=== PATIENT | male | born 1940 | race Caucasian/White ===

== ENCOUNTER 2021-08-08 18:19 | Emergency (ER) | payer MEDICARE ==
[~2021-08-08] VITALS: Ht 172.7 cm; Wt 79.1 kg
[2021-08-08 19:14] VITALS: BP 124/71
[2021-08-08 20:03] LABS: ALANINE AMINOTRANSFERASE 395 U/L (12-78); ALKALINE PHOSPHATASE 55 IU/L (46-116); ANION GAP 13 (8-16); ASPARTATE AMINO TRANSFERASE 480 U/L (10-37); BILIRUBIN,TOTAL 1.4 MG/DL (0.1-1.0); BLOOD UREA NITROGEN 37 MG/DL (7-18); BUN/CREATININE RATIO 21.3 (5.4-32.0); CALCIUM 9.6 MG/DL (8.5-10.1); CHLORIDE 98 MMOL/L (99-107); CREATININE 1.74 MG/DL (0.60-1.10); GLUCOSE 158 MG/DL (70-104); POTASSIUM 4.7 MMOL/L (3.5-5.1); SODIUM 133 MMOL/L (135-145); TOTAL CARBON DIOXIDE 21.9 MMOL/L (24-32); eGFR 38 ML/MIN
[2021-08-08 20:22] LABS: BASOPHILS % (AUTO) 0.2 % (0-1); EOSINOPHILS % (AUTO) 0.1 % (0-6); HEMATOCRIT 39.7 % (42.0-52.0); HEMOGLOBIN 13.5 g/dl (14.0-17.9); LYMPHOCYTES # (AUTO) 1.1 X10'3 (1.1-4.8); LYMPHOCYTES % (AUTO) 11.2 % (21-51); MEAN CORPUSCULAR HEMOGLOBIN 32.1 PG (27.0-31.0); MEAN CORPUSCULAR HGB CONC 33.9 g/dL (33.0-36.5); MEAN CORPUSCULAR VOLUME 94.8 FL (78-98); MEAN PLATELET VOLUME 9.6 FL (7.4-10.4); MONOCYTES # (AUTO) 1.2 X10'3 (0-0.9); MONOCYTES % (AUTO) 13.1 % (2-12); NEUTROPHILS # (AUTO) 7.1 X10'3 (1.8-7.7); NEUTROPHILS % (AUTO) 75.4 % (42-75); PLATELET COUNT 164 X10'3 (140-440); RED BLOOD COUNT 4.19 X10'6 (4.70-6.10); RED CELL DISTRIBUTION WIDTH 12.8 % (11.5-14.5); WHITE BLOOD COUNT 9.4 X10'3 (4.5-11.0)
[2021-08-08 21:01] LABS: COLOR,URINE AMBER (Yellow); UA COLLECTION TYPE CLN CATCH MIDSTREAM
[2021-08-08 21:02] LABS: CLARITY,URINE CLEAR (Clear); GLUCOSE, URINE NEGATIVE (Neg); KETONES,URINE NEGATIVE (Neg); NITRITES, URINE NEGATIVE (Neg); OCCULT BLOOD,URINE TRACE-LYSED (Neg); PROTEIN,URINE TRACE mg/dl (Neg)
[2021-08-08 21:03] LABS: LEUKOCYTE ESTERASE ,URINE NEGATIVE (Neg); UROBILINOGEN,URINE 0.2 E.U/dL (0.2-1.0)
[2021-08-08 21:33] LABS: BACTERIA,URINE NONE SEEN /HPF (Neg); MUCUS STRANDS MODERATE /LPF (Neg); SQUAMOUS EPITHELIAL CELL,UR FEW /LPF (FEW); WBC,URINE 0-4 /HPF (0-4)
== END 2021-08-08 21:40 | disposition home or self-care (01) ==
LOC: ER 18:19
DX: R74.01 Elevation of levels of liver transaminase levels (principal); R14.0 Abdominal distension (gaseous); R11.2 Nausea with vomiting, unspecified; R10.31 Right lower quadrant pain; R10.32 Left lower quadrant pain; G40.909 Epilepsy, unspecified, not intractable, without status epilepticus; E78.00 Pure hypercholesterolemia, unspecified; I11.0 Hypertensive heart disease with heart failure; I50.9 Heart failure, unspecified; Z95.5 Presence of coronary angioplasty implant and graft; Z95.0 Presence of cardiac pacemaker
CPT/HCPCS: 36415; 70450; 71045; 74176; 80053; 81001; 83880; 85025; 93005; 99285

== ENCOUNTER 2021-08-11 12:36 | Inpatient (IN) | payer MEDICARE ==
[~2021-08-11] VITALS: Ht 172.7 cm; Wt 94.7 kg
[2021-08-11 13:04] LABS: HEMOGLOBIN 13.4 g/dl (14.0-17.9); WHITE BLOOD COUNT 9.7 X10'3 (4.5-11.0)
[2021-08-11 13:06] LABS: BASOPHILS % (AUTO) 0.1 % (0-1); EOSINOPHILS % (AUTO) 0.1 % (0-6); HEMATOCRIT 38.9 % (42.0-52.0); MEAN CORPUSCULAR HEMOGLOBIN 32.6 PG (27.0-31.0); MEAN CORPUSCULAR HGB CONC 34.4 g/dL (33.0-36.5); MEAN CORPUSCULAR VOLUME 94.6 FL (78-98); MEAN PLATELET VOLUME 9.5 FL (7.4-10.4); MONOCYTES # (AUTO) 1.1 X10'3 (0-0.9); MONOCYTES % (AUTO) 11.8 % (2-12); NEUTROPHILS # (AUTO) 7.6 X10'3 (1.8-7.7); PLATELET COUNT 125 X10'3 (140-440); RED BLOOD COUNT 4.11 X10'6 (4.70-6.10); RED CELL DISTRIBUTION WIDTH 13.3 % (11.5-14.5)
[2021-08-11 13:23] LABS: ALBUMIN 3.9 G/DL (3.4-5.0); ALBUMIN/GLOBULIN RATIO 1.1 (1.1-1.5); ALKALINE PHOSPHATASE 83 IU/L (46-116); ANION GAP 8 (8-16); BILIRUBIN,TOTAL 1.5 MG/DL (0.1-1.0); BLOOD UREA NITROGEN 73 MG/DL (7-18); CALCIUM 9.1 MG/DL (8.5-10.1); CHLORIDE 94 MMOL/L (99-107); CREATININE 2.28 MG/DL (0.60-1.10); GLUCOSE 123 MG/DL (70-104); SODIUM 129 MMOL/L (135-145); TOTAL CARBON DIOXIDE 26.9 MMOL/L (24-32); TOTAL PROTEIN 7.3 G/DL (6.4-8.2); eGFR 28 ML/MIN
[2021-08-11 13:43] LABS: ACETAMINOPHEN < 2.0 UG/ML (10-30)
[2021-08-11 13:44] LABS: ALANINE AMINOTRANSFERASE 1592 U/L (12-78); ASPARTATE AMINO TRANSFERASE 1140 U/L (10-37)
[2021-08-11 15:45] LABS: LIPASE 181 U/L (73-393)
[2021-08-11] MEDS ORDERED: ondansetron/PF 4mg/2ml inj IV ONE (17:45)
[2021-08-11] MEDS ORDERED: normal saline 1000ML IV soln IVB ONE (17:45)
[2021-08-11] MEDS ORDERED: morphine 4 MG/ML inj SYRINge IV PRN (17:45)
[2021-08-11] MEDS ORDERED: CefTRIAXone 2gm/D5W 50ml BAG 50 ML IV ONE (18:15)
--- NOTE | 2021-08-11 19:09 | NUR ---
raeann daughter [phone]
[2021-08-11] MEDS ORDERED: LEVE500T PO (19:11)
[2021-08-11] MEDS ORDERED: GABA300C PO (19:11)
[2021-08-11] MEDS ORDERED: CALC-1051 PO (19:11)
[2021-08-11] MEDS ORDERED: GLUC-95 PO (19:11)
[2021-08-11] MEDS ORDERED: APIX5TAB3 PO (19:11)
[2021-08-11] MEDS ORDERED: SPIR25TA5 PO (19:11)
[2021-08-11] MEDS ORDERED: UBID100C16 PO (19:11)
[2021-08-11] MEDS ORDERED: ASCO-283 PO (19:11)
[2021-08-11] MEDS ORDERED: ONDA-103 PO (19:11)
[2021-08-11] MEDS ORDERED: NITR0.4T51 SL (19:11)
[2021-08-11] MEDS ORDERED: LISI10TA27 PO (19:11)
[2021-08-11] MEDS ORDERED: SIMV-45 PO (19:11)
[2021-08-11] MEDS ORDERED: BIOT10004 PO (19:11)
[2021-08-11] MEDS ORDERED: MULT-1085 PO (19:11)
[2021-08-11] MEDS ORDERED: METH500T4 PO (19:11)
[2021-08-11] MEDS ORDERED: GARL1000 PO (19:11)
[2021-08-11] MEDS ORDERED: FURO40TA4 PO (19:11)
[2021-08-11] MEDS ORDERED: potassium CL 10mEq/100ml bag 100 ML IV PRN (22:20)
[2021-08-11] MEDS ORDERED: acetaminophen 325mg tablet PO PRN ×2 (22:20)
[2021-08-11] MEDS ORDERED: magnesium 4gm in 100ml NS 100 ML IV PRN (22:20)
[2021-08-11] MEDS ORDERED: potassium Cl 20 mEq SR tablet PO PRN ×2 (22:20)
[2021-08-11] MEDS ORDERED: mag hydrox/Alum hydrox/simeth 30ml oral suspension PO PRN (22:20)
[2021-08-11] MEDS ORDERED: magnesium 2GM in 50ml NS 50 ML IV PRN (22:20)
[2021-08-11] MEDS ORDERED: magnesium Cl slow-release 64mg tablet PO PRN (22:20)
[2021-08-11] MEDS: normal saline 1000ml 1,000 ML IV SCH (22:47)
[2021-08-11 23:11] LABS: MAGNESIUM 2.8 MG/DL (1.5-2.4); POTASSIUM 4.7 MMOL/L (3.5-5.1)
[2021-08-11] MEDS: heparin, porcine 5000 units/ml vial SQ SCH (23:21)
[2021-08-12 01:16] LABS: HEMOGLOBIN 12.1 g/dl (14.0-17.9); MEAN PLATELET VOLUME 10.1 FL (7.4-10.4); MONOCYTES # (AUTO) 1.5 X10'3 (0-0.9); WHITE BLOOD COUNT 9.1 X10'3 (4.5-11.0)
[2021-08-12 01:17] LABS: BASOPHILS % (AUTO) 0.2 % (0-1); EOSINOPHILS % (AUTO) 0.1 % (0-6); HEMATOCRIT 34.7 % (42.0-52.0); LYMPHOCYTES # (AUTO) 1.2 X10'3 (1.1-4.8); MEAN CORPUSCULAR HEMOGLOBIN 32.8 PG (27.0-31.0); MEAN CORPUSCULAR VOLUME 93.9 FL (78-98); MONOCYTES % (AUTO) 16.7 % (2-12); NEUTROPHILS # (AUTO) 6.4 X10'3 (1.8-7.7); PLATELET COUNT 113 X10'3 (140-440); RED CELL DISTRIBUTION WIDTH 13.1 % (11.5-14.5)
[2021-08-12 01:38] LABS: ALBUMIN 3.4 G/DL (3.4-5.0); ALBUMIN/GLOBULIN RATIO 1.1 (1.1-1.5); ALKALINE PHOSPHATASE 74 IU/L (46-116); ANION GAP 10 (8-16); ASPARTATE AMINO TRANSFERASE 837 U/L (10-37); BLOOD UREA NITROGEN 76 MG/DL (7-18); BUN/CREATININE RATIO 33.5 (5.4-32.0); CALCIUM 8.3 MG/DL (8.5-10.1); CHLORIDE 97 MMOL/L (99-107); CHOL/HDL RATIO 3.5 (0.00-4.99); CHOLESTEROL 81 MG/DL (0-200); CREATININE 2.27 MG/DL (0.60-1.10); GLUCOSE 106 MG/DL (70-104); HDL CHOLESTEROL 23 MG/DL (35-60); LDL CHOLESTEROL 51 MG/DL (50-100); SODIUM 132 MMOL/L (135-145); TOTAL CARBON DIOXIDE 24.7 MMOL/L (24-32); TOTAL PROTEIN 6.5 G/DL (6.4-8.2); TRIGLYCERIDES 47 MG/DL (20-135); eGFR 28 ML/MIN
[2021-08-12 02:00] VITALS: BP 106/68
--- NOTE | 2021-08-12 02:35 | NUR ---
Patient was transfer into room 3013 B in a stable condition, oriented to room, call light within, reach bed in lower position will continue to monitor and report changes
[2021-08-12 02:41] LABS: ALANINE AMINOTRANSFERASE 1265 U/L (12-78)
--- NOTE | 2021-08-12 06:39 | NUR ---
Problems reprioritized. Patient report given, questions answered & plan of care reviewed with Ros LITTLE .
--- NOTE | 2021-08-12 06:59 | NUR ---
Patient in room PCU 3013. I have received report from Nelly and had the opportunity to ask questions and assume patient care.AAox4, in no distress, call light in reach
[2021-08-12 07:01] VITALS: BP 104/63
[2021-08-12] MEDS: K and/or MAG REPLACEMENT MC SCH ×2 (08:00→20:00)
[2021-08-12] MEDS: levetiracetam 250mg tablet PO SCH ×2 (10:01→22:10)
[2021-08-12] MEDS: lisinopril 5mg tablet PO SCH (10:02)
[2021-08-12] MEDS: heparin, porcine 5000 units/ml vial SQ SCH ×2 (10:03→16:41)
[2021-08-12] MEDS: CefTRIAXone 2gm/D5W 50ml BAG 50 ML IV SCH (10:05)
[2021-08-12] MEDS: furosemide 40mg/4ml inj IV SCH ×2 (10:05→22:09)
[2021-08-12 11:00] VITALS: BP 103/60
[2021-08-12 15:00] VITALS: BP 107/53
[2021-08-12] MEDS: morphine 2 MG/ML inj. syringe IV PRN ×2 (16:12→22:10)
[2021-08-12] MEDS: carVEDilol 3.125mg tablet PO SCH (17:37)
[2021-08-12 19:00] VITALS: BP 107/55
--- NOTE | 2021-08-12 19:07 | NUR ---
Problems reprioritized. Patient report given,randall LITTLE questions answered & plan of care reviewed with .
[2021-08-12] MEDS: lactobacillus rhamnosus 10,000 MMU CELLS/CAPSULE PO SCH (22:09)
[2021-08-12] MEDS: ondansetron/PF 4mg/2ml inj IV PRN (22:31)
[2021-08-12 23:00] VITALS: BP 86/47
--- NOTE | 2021-08-13 03:00 | NUR ---
Patient refused for vital signs to be taken.
[2021-08-13 06:00] VITALS: BP 126/67
--- NOTE | 2021-08-13 06:45 | NUR ---
Problems reprioritized. Patient report given, questions answered & plan of care reviewed with ANABEL Andre.
--- NOTE | 2021-08-13 06:46 | NUR ---
Patient in room PCU 3013. I have received report from Ava LITTLE and had the opportunity to ask questions and assume patient care.
[2021-08-13] MEDS: levetiracetam 250mg tablet PO SCH ×2 (07:53→19:57)
[2021-08-13] MEDS: furosemide 40mg/4ml inj IV SCH ×2 (07:54→19:56)
[2021-08-13] MEDS: heparin, porcine 5000 units/ml vial SQ SCH ×3 (07:56→16:15)
[2021-08-13] MEDS: lactobacillus rhamnosus 10,000 MMU CELLS/CAPSULE PO SCH ×2 (07:57→19:57)
[2021-08-13] MEDS: carVEDilol 3.125mg tablet PO SCH ×2 (07:57→16:15)
[2021-08-13] MEDS: lisinopril 5mg tablet PO SCH (07:57)
[2021-08-13] MEDS: K and/or MAG REPLACEMENT MC SCH ×2 (08:00→19:40)
[2021-08-13 08:01] LABS: BASOPHILS % (AUTO) 0.2 % (0-1); HEMOGLOBIN 12.7 g/dl (14.0-17.9); MONOCYTES # (AUTO) 1.4 X10'3 (0-0.9); MONOCYTES % (AUTO) 17.2 % (2-12); NEUTROPHILS # (AUTO) 5.7 X10'3 (1.8-7.7)
[2021-08-13] MEDS: CefTRIAXone 2gm/D5W 50ml BAG 50 ML IV SCH (08:02)
[2021-08-13 08:04] LABS: EOSINOPHILS % (AUTO) 0.3 % (0-6); HEMATOCRIT 37.5 % (42.0-52.0); LYMPHOCYTES % (AUTO) 12.6 % (21-51); MEAN CORPUSCULAR HEMOGLOBIN 32.4 PG (27.0-31.0); MEAN CORPUSCULAR HGB CONC 33.9 g/dL (33.0-36.5); MEAN CORPUSCULAR VOLUME 95.5 FL (78-98); MEAN PLATELET VOLUME 10.3 FL (7.4-10.4); NEUTROPHILS % (AUTO) 69.7 % (42-75); PLATELET COUNT 115 X10'3 (140-440); RED BLOOD COUNT 3.93 X10'6 (4.70-6.10); WHITE BLOOD COUNT 8.1 X10'3 (4.5-11.0)
[2021-08-13 08:28] LABS: ALBUMIN 3.5 G/DL (3.4-5.0); ALKALINE PHOSPHATASE 87 IU/L (46-116); ANION GAP 9 (8-16); ASPARTATE AMINO TRANSFERASE 569 U/L (10-37); BILIRUBIN,TOTAL 1.1 MG/DL (0.1-1.0); BLOOD UREA NITROGEN 77 MG/DL (7-18); BUN/CREATININE RATIO 33.5 (5.4-32.0); CALCIUM 8.1 MG/DL (8.5-10.1); CHLORIDE 97 MMOL/L (99-107); GLUCOSE 94 MG/DL (70-104); POTASSIUM 4.6 MMOL/L (3.5-5.1); SODIUM 132 MMOL/L (135-145); TOTAL CARBON DIOXIDE 26.5 MMOL/L (24-32); TOTAL PROTEIN 6.9 G/DL (6.4-8.2); eGFR 27 ML/MIN
[2021-08-13 08:31] LABS: ALANINE AMINOTRANSFERASE 1153 U/L (12-78)
[2021-08-13 09:05] LABS: NUCLEATED RED BLOOD CELLS 3 /100WBC (0-0); PLATELET ESTIMATE DECREASED; TOTAL CELLS COUNTED 100
[2021-08-13 09:09] LABS: POLYCHROMASIA 1+
[2021-08-13 09:10] LABS: TARGET CELLS FEW
[2021-08-13 11:00] VITALS: BP 113/65
[2021-08-13] MEDS: HYDROcodone/acetaminophen 10/325mg tab PO PRN (12:57)
--- NOTE | 2021-08-13 13:12 | NUR ---
RE: Paracentesis. Per Bridget from [facility], Paracentesis will not be performed d/t not enough fluid
[2021-08-13 16:07] VITALS: BP 92/49
[2021-08-13 16:56] LABS: CLARITY,URINE CLEAR (Clear); COLOR,URINE YELLOW (Yellow); GLUCOSE, URINE NEGATIVE (Neg); KETONES,URINE NEGATIVE (Neg); LEUKOCYTE ESTERASE ,URINE NEGATIVE (Neg); NITRITES, URINE NEGATIVE (Neg); OCCULT BLOOD,URINE NEGATIVE (Neg); PROTEIN,URINE NEGATIVE (Neg); UROBILINOGEN,URINE 0.2 E.U/dL (0.2-1.0)
[2021-08-13 16:58] LABS: UA COLLECTION TYPE NON-SPECIFIED
[2021-08-13 17:08] LABS: TOTAL PROTEIN,URINE RANDOM 8.6 MG/DL
[2021-08-13 18:00] VITALS: BP 90/56
--- NOTE | 2021-08-13 18:07 | NUR ---
and daughter at bedside
[2021-08-13 18:11] LABS: UA EOSINOPHILS NO EOS /HPF
--- NOTE | 2021-08-13 18:56 | NUR ---
Patient report given to Dunia LITTLE, questions answered & plan of care reviewed with .
--- NOTE | 2021-08-13 19:43 | NUR ---
Patient's family would like to get a call from attending physician. Please call at [phone]. Thank you !
--- NOTE | 2021-08-13 20:14 | NUR ---
Please Doctor family would like to be updated. Please call daughter Shereen instead of at [phone] Thank you
[2021-08-13 22:00] VITALS: BP 105/66
[2021-08-13] MEDS: ondansetron/PF 4mg/2ml inj IV PRN (22:19)
[2021-08-13] MEDS: normal saline 1000ml 1,000 ML IV SCH (22:20)
[2021-08-13] MEDS: morphine 2 MG/ML inj. syringe IV PRN (22:31)
[2021-08-14] VITALS (7 sets, daily range): BP systolic 88–109; BP diastolic 54–69
[2021-08-14] MEDS: furosemide 40mg/4ml inj IV SCH ×2 (07:29→21:00)
[2021-08-14] MEDS: carVEDilol 3.125mg tablet PO SCH (07:30)
[2021-08-14] MEDS: heparin, porcine 5000 units/ml vial SQ SCH ×3 (07:30→17:31)
[2021-08-14] MEDS: levetiracetam 250mg tablet PO SCH ×2 (07:30→21:00)
[2021-08-14] MEDS: HYDROcodone/acetaminophen 10/325mg tab PO PRN (07:31)
[2021-08-14] MEDS: lactobacillus rhamnosus 10,000 MMU CELLS/CAPSULE PO SCH ×2 (07:33→21:00)
[2021-08-14] MEDS: CefTRIAXone 2gm/D5W 50ml BAG 50 ML IV SCH (07:33)
[2021-08-14] MEDS: lisinopril 5mg tablet PO SCH (07:33)
[2021-08-14] MEDS: K and/or MAG REPLACEMENT MC SCH ×2 (08:00→20:00)
[2021-08-14 09:19] LABS: BASOPHILS % (AUTO) 0.2 % (0-1); EOSINOPHILS # (AUTO) 0.1 X10'3 (0-0.9); EOSINOPHILS % (AUTO) 1.9 % (0-6); PLATELET COUNT 106 X10'3 (140-440)
[2021-08-14 09:22] LABS: HEMATOCRIT 35.9 % (42.0-52.0); HEMOGLOBIN 12.4 g/dl (14.0-17.9); LYMPHOCYTES # (AUTO) 1.1 X10'3 (1.1-4.8); MEAN CORPUSCULAR HEMOGLOBIN 32.6 PG (27.0-31.0); MEAN CORPUSCULAR HGB CONC 34.5 g/dL (33.0-36.5); MEAN CORPUSCULAR VOLUME 94.6 FL (78-98); MEAN PLATELET VOLUME 10.5 FL (7.4-10.4); MONOCYTES # (AUTO) 1.1 X10'3 (0-0.9); MONOCYTES % (AUTO) 14.9 % (2-12); NEUTROPHILS # (AUTO) 5.2 X10'3 (1.8-7.7); RED BLOOD COUNT 3.79 X10'6 (4.70-6.10); RED CELL DISTRIBUTION WIDTH 13.1 % (11.5-14.5); WHITE BLOOD COUNT 7.6 X10'3 (4.5-11.0)
[2021-08-14 09:35] LABS: ALANINE AMINOTRANSFERASE 794 U/L (12-78); ALBUMIN 3.2 G/DL (3.4-5.0); ALKALINE PHOSPHATASE 76 IU/L (46-116); ANION GAP 9 (8-16); ASPARTATE AMINO TRANSFERASE 302 U/L (10-37); BILIRUBIN,TOTAL 0.9 MG/DL (0.1-1.0); BLOOD UREA NITROGEN 74 MG/DL (7-18); BUN/CREATININE RATIO 36.1 (5.4-32.0); CALCIUM 7.7 MG/DL (8.5-10.1); CHLORIDE 97 MMOL/L (99-107); CREATININE 2.05 MG/DL (0.60-1.10); GLUCOSE 90 MG/DL (70-104); POTASSIUM 4.6 MMOL/L (3.5-5.1); SODIUM 133 MMOL/L (135-145); TOTAL CARBON DIOXIDE 26.9 MMOL/L (24-32); TOTAL PROTEIN 6.4 G/DL (6.4-8.2); eGFR 31 ML/MIN
[2021-08-14 09:52] LABS: HEPATITIS C ANTIBODY <0.1 s/co ratio (0.0-0.9)
--- NOTE | 2021-08-14 10:04 | NUR ---
Patient in room PCU 3013. I have received report from Dunia LITTLE and had the opportunity to ask questions and assume patient care.
[2021-08-14 10:06] LABS: PLATELET ESTIMATE DECREASED; POIKILOCYTOSIS FEW; POLYCHROMASIA FEW
[2021-08-14 10:07] LABS: TARGET CELLS FEW
[2021-08-14] MEDS: DOBUTamine-DoBUTrex 500mg/D5W 250 ML IV SCH (13:29)
--- NOTE | 2021-08-14 19:02 | NUR ---
Problems reprioritized. Patient report given Giulia RN, questions answered & plan of care reviewed with .
[2021-08-15] VITALS (8 sets, daily range): BP systolic 90–130; BP diastolic 54–63
[2021-08-15] MEDS: heparin, porcine 5000 units/ml vial SQ SCH ×3 (00:08→15:21)
[2021-08-15] MEDS: HYDROcodone/acetaminophen 10/325mg tab PO PRN ×2 (02:01→14:44)
--- NOTE | 2021-08-15 06:42 | NUR ---
Patient in room PCU 3013. I have received report from Dunia LITTLE and had the opportunity to ask questions and assume patient care.
[2021-08-15] MEDS: K and/or MAG REPLACEMENT MC SCH ×2 (08:00→20:00)
[2021-08-15 08:07] LABS: BASOPHILS % (AUTO) 0.2 % (0-1); EOSINOPHILS # (AUTO) 0.1 X10'3 (0-0.9); EOSINOPHILS % (AUTO) 1.5 % (0-6); HEMATOCRIT 37.2 % (42.0-52.0); HEMOGLOBIN 12.6 g/dl (14.0-17.9); LYMPHOCYTES % (AUTO) 16.7 % (21-51); MEAN CORPUSCULAR HEMOGLOBIN 32.3 PG (27.0-31.0); MEAN CORPUSCULAR HGB CONC 33.9 g/dL (33.0-36.5); MEAN CORPUSCULAR VOLUME 95.3 FL (78-98); MEAN PLATELET VOLUME 9.8 FL (7.4-10.4); MONOCYTES # (AUTO) 0.8 X10'3 (0-0.9); MONOCYTES % (AUTO) 13.9 % (2-12); NEUTROPHILS # (AUTO) 4.1 X10'3 (1.8-7.7); NEUTROPHILS % (AUTO) 67.7 % (42-75); PLATELET COUNT 110 X10'3 (140-440); RED BLOOD COUNT 3.91 X10'6 (4.70-6.10); RED CELL DISTRIBUTION WIDTH 13.4 % (11.5-14.5)
[2021-08-15] MEDS: furosemide 40mg/4ml inj IV SCH ×2 (08:43→20:31)
[2021-08-15] MEDS: lactobacillus rhamnosus 10,000 MMU CELLS/CAPSULE PO SCH ×2 (08:43→20:32)
[2021-08-15] MEDS: levetiracetam 250mg tablet PO SCH ×2 (08:44→20:32)
[2021-08-15] MEDS: CefTRIAXone 2gm/D5W 50ml BAG 50 ML IV SCH (08:44)
--- NOTE | 2021-08-15 09:25 | NUR ---
Dr Raymond paged regarding critical lab [phone] MESSAGE: RE: Dina Wright [id number]. Troponin 104
[2021-08-15 09:56] LABS: ALANINE AMINOTRANSFERASE 686 U/L (12-78); ALBUMIN 3.5 G/DL (3.4-5.0); ALKALINE PHOSPHATASE 78 IU/L (46-116); ANION GAP 8 (8-16); ASPARTATE AMINO TRANSFERASE 210 U/L (10-37); BLOOD UREA NITROGEN 63 MG/DL (7-18); BUN/CREATININE RATIO 31.8 (5.4-32.0); CALCIUM 7.9 MG/DL (8.5-10.1); CHLORIDE 97 MMOL/L (99-107); CREATININE 1.98 MG/DL (0.60-1.10); GLUCOSE 138 MG/DL (70-104); POTASSIUM 4.7 MMOL/L (3.5-5.1); SODIUM 132 MMOL/L (135-145); TOTAL CARBON DIOXIDE 27.2 MMOL/L (24-32); eGFR 33 ML/MIN
--- NOTE | 2021-08-15 18:41 | NUR ---
Problems reprioritized. Patient report given to Nelly LITTLE, questions answered & plan of care reviewed .
[2021-08-15] MEDS: normal saline 1000ml 1,000 ML IV SCH (22:58)
[2021-08-16] MEDS: heparin, porcine 5000 units/ml vial SQ SCH ×3 (00:17→16:07)
[2021-08-16] MEDS: DOBUTamine-DoBUTrex 500mg/D5W 250 ML IV SCH ×2 (00:18→03:51)
[2021-08-16 06:00] VITALS: BP 110/63
--- NOTE | 2021-08-16 06:30 | NUR ---
Patient in room PCU 3013. I have received report from Nelly LITTLE and had the opportunity to ask questions and assume patient care.
[2021-08-16 06:39] LABS: BASOPHILS % (AUTO) 0.3 % (0-1); EOSINOPHILS # (AUTO) 0.1 X10'3 (0-0.9); EOSINOPHILS % (AUTO) 0.8 % (0-6); HEMATOCRIT 37.4 % (42.0-52.0); HEMOGLOBIN 12.5 g/dl (14.0-17.9); LYMPHOCYTES % (AUTO) 14.9 % (21-51); MEAN CORPUSCULAR HEMOGLOBIN 31.8 PG (27.0-31.0); MEAN CORPUSCULAR HGB CONC 33.6 g/dL (33.0-36.5); MEAN CORPUSCULAR VOLUME 94.6 FL (78-98); MEAN PLATELET VOLUME 9.1 FL (7.4-10.4); MONOCYTES % (AUTO) 14.8 % (2-12); NEUTROPHILS # (AUTO) 4.6 X10'3 (1.8-7.7); NEUTROPHILS % (AUTO) 69.2 % (42-75); PLATELET COUNT 120 X10'3 (140-440); RED BLOOD COUNT 3.95 X10'6 (4.70-6.10); RED CELL DISTRIBUTION WIDTH 13.9 % (11.5-14.5); WHITE BLOOD COUNT 6.6 X10'3 (4.5-11.0)
[2021-08-16 06:58] LABS: ALANINE AMINOTRANSFERASE 516 U/L (12-78); ALBUMIN 3.5 G/DL (3.4-5.0); ALKALINE PHOSPHATASE 73 IU/L (46-116); ANION GAP 11 (8-16); ASPARTATE AMINO TRANSFERASE 142 U/L (10-37); BLOOD UREA NITROGEN 48 MG/DL (7-18); BUN/CREATININE RATIO 31.2 (5.4-32.0); CHLORIDE 96 MMOL/L (99-107); CREATININE 1.54 MG/DL (0.60-1.10); GLUCOSE 116 MG/DL (70-104); POTASSIUM 4.5 MMOL/L (3.5-5.1); SODIUM 130 MMOL/L (135-145); TOTAL CARBON DIOXIDE 23.3 MMOL/L (24-32); TOTAL PROTEIN 7.1 G/DL (6.4-8.2); eGFR 43 ML/MIN
[2021-08-16] MEDS: ondansetron/PF 4mg/2ml inj IV PRN ×2 (07:02→16:07)
[2021-08-16] MEDS: furosemide 40mg/4ml inj IV SCH ×2 (07:57→20:05)
[2021-08-16] MEDS: levetiracetam 250mg tablet PO SCH ×2 (07:58→20:05)
[2021-08-16] MEDS: lactobacillus rhamnosus 10,000 MMU CELLS/CAPSULE PO SCH ×2 (07:58→20:05)
[2021-08-16] MEDS: CefTRIAXone 2gm/D5W 50ml BAG 50 ML IV SCH (07:59)
[2021-08-16] MEDS: K and/or MAG REPLACEMENT MC SCH ×2 (08:00→20:00)
[2021-08-16] MEDS: proCHLORperazine 10 MG/2 ml inj IV PRN (10:23)
[2021-08-16 11:00] VITALS: BP 126/77
[2021-08-16] MEDS: morphine 2 MG/ML inj. syringe IV PRN ×3 (11:09→20:05)
--- NOTE | 2021-08-16 12:00 | NUR ---
Initial: Pt admitted w/ increasing abd pain, dx of CHF exacerbation per EMR. Pt still having some abd discomfort and dry heaving per MD note, though pt able to eat moderately well on Heart Healthy diet w/ 50-75% intake of meals which meets approximately 84% of est energy needs and 90% of est protein needs. LBM 08/15. No nutrition intervention implemented at this time, will continue to monitor. Recs: 1. Continue Heart Healthy diet as tolerated per MD 2. Bowel care per rx 3. Weekly wts Addendum: 08/16/21 at [address] Amended: Links added.
[2021-08-16 15:00] VITALS: BP 120/60
--- NOTE | 2021-08-16 17:53 | NUR ---
[place] documentation: I have reviewed and agree with all interventions, assessments performed and documented by Jazmín LITTLE. [place] Medication Administration: For this medication-pass time frame, all medication were reviewed, dispensed, administered and documented per hospital policy by Jazmín LITTLE
--- NOTE | 2021-08-16 18:26 | NUR ---
Problems reprioritized. Patient report given, questions answered & plan of care reviewed with Andreina LITTLE. Patient resting in no acute distress
--- NOTE | 2021-08-16 18:39 | NUR ---
Patient in room PCU 3013. I have received report from Shayla LITTLE and had the opportunity to ask questions and assume patient care.
[2021-08-16] MEDS: HYDROcodone/acetaminophen 10/325mg tab PO PRN (22:06)
[2021-08-16] MEDS: diatr meglu/diatrizoate 30ml oral sol.-(3 dose) bottle PO SCH (22:06)
[2021-08-16 23:18] VITALS: BP 86/47
[2021-08-17] MEDS: heparin, porcine 5000 units/ml vial SQ SCH ×4 (00:26→23:29)
[2021-08-17] MEDS: morphine 2 MG/ML inj. syringe IV PRN ×2 (01:24→10:55)
[2021-08-17 02:00] VITALS: BP 102/53
[2021-08-17] MEDS: HYDROcodone/acetaminophen 10/325mg tab PO PRN ×2 (04:09→21:13)
--- NOTE | 2021-08-17 06:06 | NUR ---
Problems reprioritized. Patient report given, questions answered & plan of care reviewed with Shayla LITTLE.
--- NOTE | 2021-08-17 06:37 | NUR ---
Patient in room PCU 3013. I have received report from Belgica LITTLE and had the opportunity to ask questions and assume patient care. Patient is resting in bed in no acute distress.
[2021-08-17 07:00] VITALS: BP 111/72
[2021-08-17] MEDS: lactobacillus rhamnosus 10,000 MMU CELLS/CAPSULE PO SCH ×2 (07:20→19:46)
[2021-08-17] MEDS: levetiracetam 250mg tablet PO SCH ×2 (07:22→19:46)
[2021-08-17] MEDS: ondansetron/PF 4mg/2ml inj IV PRN (07:22)
[2021-08-17] MEDS: furosemide 40mg/4ml inj IV SCH ×2 (07:22→19:45)
[2021-08-17] MEDS: diatr meglu/diatrizoate 30ml oral sol.-(3 dose) bottle PO SCH ×2 (07:22→11:06)
[2021-08-17] MEDS: K and/or MAG REPLACEMENT MC SCH ×2 (08:00→20:00)
[2021-08-17 10:57] LABS: ALANINE AMINOTRANSFERASE 435 U/L (12-78); ALBUMIN 3.8 G/DL (3.4-5.0); ALBUMIN/GLOBULIN RATIO 1.1 (1.1-1.5); ALKALINE PHOSPHATASE 70 IU/L (46-116); ANION GAP 10 (8-16); ASPARTATE AMINO TRANSFERASE 110 U/L (10-37); BILIRUBIN,TOTAL 1.7 MG/DL (0.1-1.0); BLOOD UREA NITROGEN 46 MG/DL (7-18); BUN/CREATININE RATIO 23.5 (5.4-32.0); CALCIUM 7.8 MG/DL (8.5-10.1); CHLORIDE 98 MMOL/L (99-107); CREATININE 1.96 MG/DL (0.60-1.10); GLUCOSE 133 MG/DL (70-104); MAGNESIUM 2.9 MG/DL (1.5-2.4); PHOSPHORUS 3.2 MG/DL (2.3-4.5); POTASSIUM 4.7 MMOL/L (3.5-5.1); SODIUM 133 MMOL/L (135-145); TOTAL CARBON DIOXIDE 25.1 MMOL/L (24-32); TOTAL PROTEIN 7.4 G/DL (6.4-8.2); eGFR 33 ML/MIN
[2021-08-17 11:00] VITALS: BP 110/57
[2021-08-17] MEDS ORDERED: DOBUTamine-DoBUTrex 500mg/D5W 250 ML IV SCH (11:30)
--- NOTE | 2021-08-17 12:34 | NUR ---
Page Sent promotional table spacer PAGER ID: [phone] MESSAGE: [id number] Martinez. CT report is available. Patient c/o 06/27 pain in abdomen still more prevalent on right family is concerned for appendicitis. Linnea [id number]
[2021-08-17] MEDS ORDERED: HYDROmorphone inj. 0.5 MG/0.5 ML DISP.SYRIN IV ONE (12:50)
--- NOTE | 2021-08-17 14:21 | NUR ---
Dr. Raymond gave me telephone orders to DC morphine and to order a lactic acid lab, and to change pain med to Dilaudid 0.5 mg IV Q4H for severe pain.
[2021-08-17 15:00] VITALS: BP 112/76
--- NOTE | 2021-08-17 16:54 | NUR ---
Student Medication Administration: For this medication-pass time frame, all medication were reviewed, dispensed, administered and documented per hospital policy by Will, nursing specialist.
--- NOTE | 2021-08-17 16:54 | NUR ---
Student documentation: I have reviewed and agree with all interventions, assessments performed and documented by Will, certified nursing assistant instructor.
[2021-08-17 18:00] VITALS: BP 125/78
--- NOTE | 2021-08-17 18:02 | NUR ---
Page Sent promotional table spacer PAGER ID: [phone] MESSAGE: [id number] Juan. Patient first lactic came back at 3.0 and the 2 hour lactic is 3.4. Linnea [id number]
--- NOTE | 2021-08-17 18:33 | NUR ---
Problems reprioritized. Patient report given, questions answered & plan of care reviewed with Belgica LITTLE. patient resting in no acute distress.
--- NOTE | 2021-08-17 18:37 | NUR ---
Patient in room PCU 3013. I have received report from Shayla LITTLE and had the opportunity to ask questions and assume patient care.
[2021-08-17] MEDS: HYDROmorphone inj. 0.5 MG/0.5 ML DISP.SYRIN IV PRN ×2 (19:42→23:44)
[2021-08-17] MEDS: ondansetron/PF 4mg/2ml inj IV SCH (19:46)
[2021-08-18] VITALS (7 sets, daily range): BP systolic 105–127; BP diastolic 51–66
[2021-08-18] MEDS: ondansetron/PF 4mg/2ml inj IV SCH ×4 (02:14→19:43)
[2021-08-18] MEDS: HYDROmorphone inj. 0.5 MG/0.5 ML DISP.SYRIN IV PRN ×2 (03:46→19:42)
--- NOTE | 2021-08-18 06:33 | NUR ---
Problems reprioritized. Patient report given, questions answered & plan of care reviewed with Jes LITTLE.
--- NOTE | 2021-08-18 07:03 | NUR ---
Patient in room PCU 3013. I have received report from Belgica and had the opportunity to ask questions and assume patient care.
[2021-08-18 07:14] LABS: ALANINE AMINOTRANSFERASE 440 U/L (12-78); ALBUMIN 3.8 G/DL (3.4-5.0); ALBUMIN/GLOBULIN RATIO 1.1 (1.1-1.5); ALKALINE PHOSPHATASE 66 IU/L (46-116); ANION GAP 14 (8-16); ASPARTATE AMINO TRANSFERASE 227 U/L (10-37); BILIRUBIN,TOTAL 2.3 MG/DL (0.1-1.0); BLOOD UREA NITROGEN 59 MG/DL (7-18); BUN/CREATININE RATIO 26.8 (5.4-32.0); CALCIUM 8.4 MG/DL (8.5-10.1); CHLORIDE 94 MMOL/L (99-107); GLUCOSE 119 MG/DL (70-104); MAGNESIUM 3.1 MG/DL (1.5-2.4); POTASSIUM 5.6 MMOL/L (3.5-5.1); SODIUM 131 MMOL/L (135-145); TOTAL CARBON DIOXIDE 22.7 MMOL/L (24-32); TOTAL PROTEIN 7.4 G/DL (6.4-8.2); eGFR 29 ML/MIN
[2021-08-18] MEDS: lactobacillus rhamnosus 10,000 MMU CELLS/CAPSULE PO SCH ×2 (07:48→19:44)
[2021-08-18] MEDS: furosemide 40mg/4ml inj IV SCH ×2 (07:49→20:00)
[2021-08-18] MEDS: levetiracetam 250mg tablet PO SCH ×2 (07:49→21:09)
[2021-08-18] MEDS: heparin, porcine 5000 units/ml vial SQ SCH ×2 (07:49→15:12)
[2021-08-18] MEDS: K and/or MAG REPLACEMENT MC SCH ×2 (08:00→20:00)
[2021-08-18] MEDS: SODIUM ZIRCONIUM CYCLOSILICATE 10 GM POWD.PACK PO SCH ×2 (13:04→21:07)
--- NOTE | 2021-08-18 18:47 | NUR ---
Problems reprioritized. Patient report given, questions answered & plan of care reviewed with Nelly Basurto [].
[2021-08-19] MEDS: heparin, porcine 5000 units/ml vial SQ SCH ×3 (00:11→15:31)
[2021-08-19 02:00] VITALS: BP 109/68
[2021-08-19] MEDS: ondansetron/PF 4mg/2ml inj IV SCH ×4 (02:56→20:46)
[2021-08-19] MEDS: HYDROcodone/acetaminophen 10/325mg tab PO PRN ×2 (04:56→13:13)
[2021-08-19 06:00] VITALS: BP 110/62
[2021-08-19 07:48] LABS: ALANINE AMINOTRANSFERASE 787 U/L (12-78); ALKALINE PHOSPHATASE 95 IU/L (46-116); ANION GAP 15 (8-16); ASPARTATE AMINO TRANSFERASE 766 U/L (10-37); BLOOD UREA NITROGEN 74 MG/DL (7-18); CALCIUM 8.7 MG/DL (8.5-10.1); CHLORIDE 92 MMOL/L (99-107); CREATININE 2.85 MG/DL (0.60-1.10); GLUCOSE 93 MG/DL (70-104); MAGNESIUM 3.3 MG/DL (1.5-2.4); POTASSIUM 5.5 MMOL/L (3.5-5.1); SODIUM 130 MMOL/L (135-145); TOTAL CARBON DIOXIDE 23.5 MMOL/L (24-32); eGFR 21 ML/MIN
[2021-08-19 07:49] LABS: ALBUMIN/GLOBULIN RATIO 1.1 (1.1-1.5); PHOSPHORUS 4.6 MG/DL (2.3-4.5); TOTAL PROTEIN 7.6 G/DL (6.4-8.2)
[2021-08-19] MEDS: K and/or MAG REPLACEMENT MC SCH ×2 (08:00→20:00)
[2021-08-19] MEDS: furosemide 40mg/4ml inj IV SCH ×2 (08:39→20:48)
[2021-08-19] MEDS: levetiracetam 250mg tablet PO SCH ×2 (08:42→20:45)
[2021-08-19] MEDS: lactobacillus rhamnosus 10,000 MMU CELLS/CAPSULE PO SCH ×2 (08:42→20:47)
[2021-08-19] MEDS: HYDROmorphone inj. 0.5 MG/0.5 ML DISP.SYRIN IV PRN ×2 (08:46→15:32)
[2021-08-19] MEDS: SODIUM ZIRCONIUM CYCLOSILICATE 10 GM POWD.PACK PO SCH ×3 (09:38→20:45)
[2021-08-19 11:00] VITALS: BP 112/64
[2021-08-19] MEDS: metoprolol succinate 25mg (24-HOUR) SR. Tablet PO SCH (13:10)
[2021-08-19 18:00] VITALS: BP 91/58
[2021-08-19 18:50] VITALS: BP 91/55
[2021-08-19] MEDS: simethicone 80mg chew tab PO SCH (21:00)
[2021-08-19 22:00] VITALS: BP 91/47
[2021-08-20] MEDS: heparin, porcine 5000 units/ml vial SQ SCH ×3 (01:58→15:37)
[2021-08-20 02:00] VITALS: BP 99/59
[2021-08-20] MEDS: ondansetron/PF 4mg/2ml inj IV SCH ×4 (02:02→21:09)
[2021-08-20 06:00] VITALS: BP 98/62
[2021-08-20 07:41] LABS: ALANINE AMINOTRANSFERASE 943 U/L (12-78); ALBUMIN 3.8 G/DL (3.4-5.0); ALBUMIN/GLOBULIN RATIO 1.1 (1.1-1.5); ALKALINE PHOSPHATASE 101 IU/L (46-116); ANION GAP 12 (8-16); ASPARTATE AMINO TRANSFERASE 851 U/L (10-37); BILIRUBIN,TOTAL 3.7 MG/DL (0.1-1.0); BLOOD UREA NITROGEN 95 MG/DL (7-18); BUN/CREATININE RATIO 25.9 (5.4-32.0); CALCIUM 8.4 MG/DL (8.5-10.1); CHLORIDE 93 MMOL/L (99-107); CREATININE 3.67 MG/DL (0.60-1.10); GLUCOSE 116 MG/DL (70-104); MAGNESIUM 3.7 MG/DL (1.5-2.4); PHOSPHORUS 5.7 MG/DL (2.3-4.5); POTASSIUM 5.1 MMOL/L (3.5-5.1); SODIUM 129 MMOL/L (135-145); TOTAL CARBON DIOXIDE 23.8 MMOL/L (24-32); TOTAL PROTEIN 7.2 G/DL (6.4-8.2); eGFR 16 ML/MIN
[2021-08-20] MEDS: K and/or MAG REPLACEMENT MC SCH ×2 (08:00→20:00)
[2021-08-20] MEDS: furosemide 40mg/4ml inj IV SCH ×2 (08:13→21:09)
[2021-08-20] MEDS: lactobacillus rhamnosus 10,000 MMU CELLS/CAPSULE PO SCH ×2 (08:13→21:08)
[2021-08-20] MEDS: levetiracetam 250mg tablet PO SCH ×2 (08:13→21:08)
[2021-08-20] MEDS: metoprolol succinate 25mg (24-HOUR) SR. Tablet PO SCH (08:13)
[2021-08-20] MEDS: HYDROmorphone inj. 0.5 MG/0.5 ML DISP.SYRIN IV PRN (08:14)
[2021-08-20] MEDS: SODIUM ZIRCONIUM CYCLOSILICATE 10 GM POWD.PACK PO SCH ×3 (08:18→21:08)
[2021-08-20] MEDS: simethicone 80mg chew tab PO SCH ×3 (08:19→21:08)
[2021-08-20 11:00] VITALS: BP 97/62
[2021-08-20] MEDS ORDERED: SINCALIDE IV PRN ×2 (15:00→15:05)
[2021-08-20] MEDS ORDERED: NORMAL SALINE IV PRN ×2 (15:00→15:05)
[2021-08-20 18:00] VITALS: BP 105/64
--- NOTE | 2021-08-20 18:19 | NUR ---
Patient in room PCU 3013. I have received report from Jamaal LITTLE and had the opportunity to ask questions and assume patient care.
--- NOTE | 2021-08-20 18:20 | NUR ---
Patient in room PCU 3013. I have received report from ANABEL Hinton and had the opportunity to ask questions and assume patient care.
[2021-08-20] MEDS: HYDROcodone/acetaminophen 10/325mg tab PO PRN (19:04)
[2021-08-20 22:00] VITALS: BP 96/64
[2021-08-21] MEDS: ondansetron/PF 4mg/2ml inj IV SCH ×4 (01:29→19:29)
[2021-08-21 02:00] VITALS: BP 104/63
[2021-08-21 06:00] VITALS: BP 106/68
--- NOTE | 2021-08-21 06:12 | NUR ---
Problems reprioritized. Patient report given, questions answered & plan of care reviewed with Katy LITTLE.
--- NOTE | 2021-08-21 06:16 | NUR ---
Problems reprioritized. Patient report given, questions answered & plan of care reviewed with ANABEL Burns.
--- NOTE | 2021-08-21 06:19 | NUR ---
Student documentation: I have reviewed and agree with all interventions, assessments performed and documented by Jaimee Garcia. Student Medication Administration: For this medication-pass time frame, all medication were reviewed, dispensed, administered and documented per hospital policy by Jaimee Garcia.
--- NOTE | 2021-08-21 06:45 | NUR ---
Patient in room PCU 3013. I have received report from thai saravia and had the opportunity to ask questions and assume patient care.
[2021-08-21] MEDS: HYDROcodone/acetaminophen 10/325mg tab PO PRN (06:59)
[2021-08-21] MEDS: metoprolol succinate 25mg (24-HOUR) SR. Tablet PO SCH (07:03)
[2021-08-21] MEDS: simethicone 80mg chew tab PO SCH ×3 (07:03→20:43)
[2021-08-21] MEDS: levetiracetam 250mg tablet PO SCH ×2 (07:03→20:43)
[2021-08-21] MEDS: furosemide 40mg/4ml inj IV SCH (07:04)
[2021-08-21] MEDS: lactobacillus rhamnosus 10,000 MMU CELLS/CAPSULE PO SCH ×2 (07:04→20:43)
[2021-08-21] MEDS: SODIUM ZIRCONIUM CYCLOSILICATE 10 GM POWD.PACK PO SCH ×3 (07:04→20:43)
[2021-08-21] MEDS: heparin, porcine 5000 units/ml vial SQ SCH ×4 (07:05→23:59)
[2021-08-21] MEDS: K and/or MAG REPLACEMENT MC SCH ×2 (08:00→20:00)
[2021-08-21 11:00] VITALS: BP 91/56
[2021-08-21 11:50] LABS: BASOPHILS % (AUTO) 0.2 % (0-1); EOSINOPHILS % (AUTO) 0 % (0-6); HEMATOCRIT 41.5 % (42.0-52.0); HEMOGLOBIN 13.8 g/dl (14.0-17.9); LYMPHOCYTES # (AUTO) 0.8 X10'3 (1.1-4.8); LYMPHOCYTES % (AUTO) 7.2 % (21-51); MEAN CORPUSCULAR HEMOGLOBIN 31.2 PG (27.0-31.0); MEAN CORPUSCULAR HGB CONC 33.1 g/dL (33.0-36.5); MEAN PLATELET VOLUME 9.7 FL (7.4-10.4); MONOCYTES # (AUTO) 1.2 X10'3 (0-0.9); MONOCYTES % (AUTO) 10.8 % (2-12); NEUTROPHILS # (AUTO) 8.9 X10'3 (1.8-7.7); NEUTROPHILS % (AUTO) 81.8 % (42-75); PLATELET COUNT 175 X10'3 (140-440); RED BLOOD COUNT 4.42 X10'6 (4.70-6.10); RED CELL DISTRIBUTION WIDTH 14.4 % (11.5-14.5); WHITE BLOOD COUNT 10.9 X10'3 (4.5-11.0)
[2021-08-21 12:02] LABS: ALANINE AMINOTRANSFERASE 923 U/L (12-78); ALBUMIN 3.8 G/DL (3.4-5.0); ALKALINE PHOSPHATASE 99 IU/L (46-116); ANION GAP 13 (8-16); BILIRUBIN,TOTAL 4.3 MG/DL (0.1-1.0); BLOOD UREA NITROGEN 109 MG/DL (7-18); BUN/CREATININE RATIO 30.1 (5.4-32.0); CALCIUM 8.1 MG/DL (8.5-10.1); CHLORIDE 92 MMOL/L (99-107); CREATININE 3.62 MG/DL (0.60-1.10); GLUCOSE 106 MG/DL (70-104); MAGNESIUM 3.8 MG/DL (1.5-2.4); SODIUM 130 MMOL/L (135-145); TOTAL CARBON DIOXIDE 24.8 MMOL/L (24-32); eGFR 16 ML/MIN
[2021-08-21 12:06] LABS: ALBUMIN/GLOBULIN RATIO 1.1 (1.1-1.5); ASPARTATE AMINO TRANSFERASE 686 U/L (10-37); PHOSPHORUS 5.4 MG/DL (2.3-4.5); POTASSIUM 5.3 MMOL/L (3.5-5.1); TOTAL PROTEIN 7.4 G/DL (6.4-8.2)
[2021-08-21 18:00] VITALS: BP 101/61
--- NOTE | 2021-08-21 18:48 | NUR ---
Problems reprioritized. Patient report given, questions answered & plan of care reviewed with hellen saravia.
--- NOTE | 2021-08-21 19:00 | NUR ---
Patient in room PCU 3013. I have received report from ANABEL Burns and had the opportunity to ask questions and assume patient care.
[2021-08-21] MEDS: HYDROmorphone inj. 0.5 MG/0.5 ML DISP.SYRIN IV PRN (19:20)
--- NOTE | 2021-08-22 00:02 | NUR ---
Patient refused to have his 2200 BP taken
[2021-08-22] MEDS: heparin, porcine 5000 units/ml vial SQ SCH ×3 (00:43→16:00)
[2021-08-22] MEDS: ondansetron/PF 4mg/2ml inj IV SCH ×4 (01:34→21:06)
[2021-08-22] MEDS: HYDROcodone/acetaminophen 10/325mg tab PO PRN (01:42)
[2021-08-22 02:00] VITALS: BP 105/57
--- NOTE | 2021-08-22 06:41 | NUR ---
I agree with Meron RN assessments, documentations, and report given to ANABEL Schwartz
--- NOTE | 2021-08-22 06:48 | NUR ---
Problems reprioritized. Patient report given, questions answered & plan of care reviewed with Lana LITTLE.
[2021-08-22 07:21] LABS: BASOPHILS % (AUTO) 0.1 % (0-1); EOSINOPHILS % (AUTO) 0.1 % (0-6); HEMATOCRIT 39.3 % (42.0-52.0); HEMOGLOBIN 13.1 g/dl (14.0-17.9); LYMPHOCYTES % (AUTO) 11.1 % (21-51); MEAN CORPUSCULAR HEMOGLOBIN 31.4 PG (27.0-31.0); MEAN CORPUSCULAR HGB CONC 33.4 g/dL (33.0-36.5); MEAN CORPUSCULAR VOLUME 93.8 FL (78-98); MONOCYTES # (AUTO) 1.4 X10'3 (0-0.9); MONOCYTES % (AUTO) 15.8 % (2-12); NEUTROPHILS # (AUTO) 6.5 X10'3 (1.8-7.7); NEUTROPHILS % (AUTO) 72.9 % (42-75); PLATELET COUNT 158 X10'3 (140-440); RED BLOOD COUNT 4.19 X10'6 (4.70-6.10); RED CELL DISTRIBUTION WIDTH 14.6 % (11.5-14.5)
[2021-08-22 07:27] VITALS: BP 91/64
[2021-08-22 07:41] LABS: ALANINE AMINOTRANSFERASE 933 U/L (12-78); ALBUMIN 3.6 G/DL (3.4-5.0); ALBUMIN/GLOBULIN RATIO 1.1 (1.1-1.5); ALKALINE PHOSPHATASE 97 IU/L (46-116); ANION GAP 10 (8-16); ASPARTATE AMINO TRANSFERASE 715 U/L (10-37); BILIRUBIN,TOTAL 3.5 MG/DL (0.1-1.0); BLOOD UREA NITROGEN 115 MG/DL (7-18); BUN/CREATININE RATIO 29.9 (5.4-32.0); CALCIUM 7.9 MG/DL (8.5-10.1); CHLORIDE 94 MMOL/L (99-107); CREATININE 3.85 MG/DL (0.60-1.10); GLUCOSE 103 MG/DL (70-104); PHOSPHORUS 5.1 MG/DL (2.3-4.5); POTASSIUM 4.2 MMOL/L (3.5-5.1); SODIUM 132 MMOL/L (135-145); TOTAL CARBON DIOXIDE 28.5 MMOL/L (24-32); TOTAL PROTEIN 6.9 G/DL (6.4-8.2); eGFR 15 ML/MIN
--- NOTE | 2021-08-22 07:52 | NUR ---
PAGER ID: [phone] MESSAGE: [id number]. Patient critical magnesium of 4.0. Lana LITTLE [id number]
[2021-08-22] MEDS: metoprolol succinate 25mg (24-HOUR) SR. Tablet PO SCH (08:00)
[2021-08-22] MEDS: K and/or MAG REPLACEMENT MC SCH ×2 (08:00→20:00)
[2021-08-22] MEDS ORDERED: furosemide 40mg/4ml inj IV SCH (08:00)
[2021-08-22 08:41] LABS: NUCLEATED RED BLOOD CELLS 1 /100WBC (0-0); TOTAL CELLS COUNTED 100
[2021-08-22 08:42] LABS: HYPERSEGMENTED NEUTROPHILS FEW; PLATELET ESTIMATE NORMAL
[2021-08-22 08:43] LABS: BURR CELLS 1+
[2021-08-22] MEDS: multivitamins, therapeutics tablet PO SCH (09:13)
[2021-08-22] MEDS: levetiracetam 250mg tablet PO SCH ×2 (09:13→21:09)
[2021-08-22] MEDS: calcium carbonate/vitamin D3 tablet PO SCH (09:13)
[2021-08-22] MEDS: ascorbic acid 500mg tablet PO SCH (09:13)
[2021-08-22] MEDS: SODIUM ZIRCONIUM CYCLOSILICATE 10 GM POWD.PACK PO SCH ×3 (09:13→21:07)
[2021-08-22] MEDS: simethicone 80mg chew tab PO SCH ×3 (09:13→21:06)
[2021-08-22] MEDS: lactobacillus rhamnosus 10,000 MMU CELLS/CAPSULE PO SCH ×2 (09:13→21:07)
--- NOTE | 2021-08-22 10:03 | NUR ---
Reassessment: Pt continues to have abd pain and some nausea though CT of the abdomen pelvis with no findings to explain his pain; mesenteric ultrasound negative, hida scan negative per MD note. Pt may need acute dialysis per Paper [facility] note. Pt on Renal diet since 08/18 w/ significant decline in PO intake, avg 20% x 11 meals not meeting needs. Pt may benefit from Nepro TID; pending MD approval. [facility] 08/22. Will continue monitor and adjust needs as medically indicated. Recs: 1. Continue Renal diet as tolerated per MD 2. Nepro TID; pending MD verification 3. Bowel care per rx 4. Weekly wts Addendum: 08/22/21 at [address] Amended: Links added.
[2021-08-22 11:00] VITALS: BP 104/50
[2021-08-22] MEDS: HYDROcodone/acetaminophen 5mg/325mg tablet PO PRN (13:20)
[2021-08-22 15:00] VITALS: BP 97/57
--- NOTE | 2021-08-22 15:39 | NUR ---
Patient is a&ox4. Lasix and metoprolol held for SBP in 90s. Complains of right leg pain, relived with norco. 1-2L nc for comfort as patient begins to gasp for breath, but o2 stays in high 90s, Dr. Cevallos aware. Sits up at bedside and walks to chair with family. Plan of care reviewed with patient and family at bedside.
[2021-08-22 18:00] VITALS: BP 100/63
[2021-08-22] MEDS: NUT.TX.IMP.RENAL FXN,LAC-REDUC (Nepro) 237 ML VANILLA PO SCH (18:00)
--- NOTE | 2021-08-22 18:30 | NUR ---
Patient in room PCU 3013. I have received report from Lana LITTLE and had the opportunity to ask questions and assume patient care.
--- NOTE | 2021-08-22 18:35 | NUR ---
Problems reprioritized. Patient report given, questions answered & plan of care reviewed with Belgica Bradley
[2021-08-22 22:00] VITALS: BP 105/67
[2021-08-23] VITALS (7 sets, daily range): BP systolic 95–117; BP diastolic 47–62
[2021-08-23] MEDS: heparin, porcine 5000 units/ml vial SQ SCH ×3 (00:33→14:13)
[2021-08-23] MEDS: HYDROcodone/acetaminophen 5mg/325mg tablet PO PRN (01:46)
[2021-08-23] MEDS: ondansetron/PF 4mg/2ml inj IV SCH ×4 (03:10→20:31)
--- NOTE | 2021-08-23 06:27 | NUR ---
Problems reprioritized. Patient report given, questions answered & plan of care reviewed with Lana LITTLE.
[2021-08-23 07:24] LABS: ALANINE AMINOTRANSFERASE 952 U/L (12-78); ALBUMIN 3.5 G/DL (3.4-5.0); ALBUMIN/GLOBULIN RATIO 1.1 (1.1-1.5); ALKALINE PHOSPHATASE 94 IU/L (46-116); ANION GAP 11 (8-16); ASPARTATE AMINO TRANSFERASE 730 U/L (10-37); BILIRUBIN,TOTAL 3.7 MG/DL (0.1-1.0); BLOOD UREA NITROGEN 124 MG/DL (7-18); BUN/CREATININE RATIO 31.8 (5.4-32.0); CHLORIDE 93 MMOL/L (99-107); GLUCOSE 112 MG/DL (70-104); MAGNESIUM 3.9 MG/DL (1.5-2.4); PHOSPHORUS 5.3 MG/DL (2.3-4.5); POTASSIUM 4.1 MMOL/L (3.5-5.1); SODIUM 128 MMOL/L (135-145); TOTAL CARBON DIOXIDE 23.7 MMOL/L (24-32); TOTAL PROTEIN 6.8 G/DL (6.4-8.2); eGFR 15 ML/MIN
[2021-08-23] MEDS: K and/or MAG REPLACEMENT MC SCH ×2 (08:00→20:00)
[2021-08-23] MEDS ORDERED: furosemide 40mg/4ml inj IV SCH ×3 (08:00→16:55)
[2021-08-23] MEDS: lactobacillus rhamnosus 10,000 MMU CELLS/CAPSULE PO SCH ×2 (08:41→20:00)
[2021-08-23] MEDS: calcium carbonate/vitamin D3 tablet PO SCH (08:41)
[2021-08-23] MEDS: simethicone 80mg chew tab PO SCH ×3 (08:42→21:00)
[2021-08-23] MEDS: multivitamins, therapeutics tablet PO SCH (08:42)
[2021-08-23] MEDS: levetiracetam 250mg tablet PO SCH ×2 (08:42→20:00)
[2021-08-23] MEDS: HYDROcodone/acetaminophen 10/325mg tab PO PRN (08:42)
[2021-08-23] MEDS: SODIUM ZIRCONIUM CYCLOSILICATE 10 GM POWD.PACK PO SCH ×3 (08:43→21:00)
[2021-08-23] MEDS: NUT.TX.IMP.RENAL FXN,LAC-REDUC (Nepro) 237 ML VANILLA PO SCH ×3 (08:51→18:00)
[2021-08-23] MEDS: ascorbic acid 500mg tablet PO SCH (08:52)
[2021-08-23 10:03] LABS: EOSINOPHILS % (AUTO) 0 % (0-6); LYMPHOCYTES # (AUTO) 0.4 X10'3 (1.1-4.8); LYMPHOCYTES % (AUTO) 4.9 % (21-51); MEAN CORPUSCULAR HGB CONC 33.1 g/dL (33.0-36.5); MEAN CORPUSCULAR VOLUME 93.6 FL (78-98); MONOCYTES # (AUTO) 0.9 X10'3 (0-0.9)
[2021-08-23 10:05] LABS: BASOPHILS % (AUTO) 0.2 % (0-1); HEMATOCRIT 37.2 % (42.0-52.0); HEMOGLOBIN 12.3 g/dl (14.0-17.9); MEAN PLATELET VOLUME 9.9 FL (7.4-10.4); MONOCYTES % (AUTO) 10.5 % (2-12); NEUTROPHILS # (AUTO) 7.1 X10'3 (1.8-7.7); NEUTROPHILS % (AUTO) 84.4 % (42-75); PLATELET COUNT 137 X10'3 (140-440); RED BLOOD COUNT 3.98 X10'6 (4.70-6.10); RED CELL DISTRIBUTION WIDTH 14.5 % (11.5-14.5); WHITE BLOOD COUNT 8.4 X10'3 (4.5-11.0)
--- NOTE | 2021-08-23 11:24 | NUR ---
PAGER ID: [phone] MESSAGE: [id number] MRI called and said scans/MRCP can't be done until patient has had pace-maker for 6 weeks. Lana LITTLE 0421
[2021-08-23] MEDS ORDERED: DOBUTamine-DoBUTrex 500mg/D5W 250 ML IV SCH (14:35)
--- NOTE | 2021-08-23 16:48 | NUR ---
Problems reprioritized. Patient report given, questions answered & plan of care reviewed with Lana LITTLE.
[2021-08-23] MEDS ORDERED: LIDOcaine 2% 10ml TOPICAL JELLY (Urojet) MM ONE (16:50)
[2021-08-23] MEDS: proCHLORperazine 10 MG/2 ml inj IV PRN (16:55)
[2021-08-23] MEDS: HYDROmorphone inj. 0.5 MG/0.5 ML DISP.SYRIN IV PRN (16:55)
[2021-08-23] MEDS: LORazepam 2 mg/ml vial IV PRN ×2 (17:20→20:31)
[2021-08-23] MEDS: furosemide 40mg/4ml inj IV SCH (17:46)
[2021-08-23] MEDS: DOBUTamine-DoBUTrex 500mg/D5W 250 ML IV SCH (17:50)
--- NOTE | 2021-08-23 17:56 | NUR ---
Educated patient and patients family about current 1.5 fluid restriction, that they cannot give him any fluids or drinks without nursing permission, drinks must be measured by primary nurse and recorded.
[2021-08-23] MEDS: piperacillin/tazo 3.375gm/50ml 50 ML IV SCH (18:00)
--- NOTE | 2021-08-23 18:18 | NUR ---
[place] documentation: I have reviewed and agree with all interventions, assessments performed and documented by Dominique LITTLE . [place] Medication Administration: For this medication-pass time frame, all medication were reviewed, dispensed, administered and documented per hospital policy by Dominique LITTLE .
--- NOTE | 2021-08-23 18:19 | NUR ---
Problems reprioritized. Patient report given, questions answered & plan of care reviewed with Belgica LITTLE.
--- NOTE | 2021-08-23 18:30 | NUR ---
Patient in room PCU 3013. I have received report from Linnea LITTLE and had the opportunity to ask questions and assume patient care.
[2021-08-23] MEDS: metoprolol tartrate 12.5mg (1/2 tablet) PO SCH (20:00)
[2021-08-23] MEDS: HYDROmorphone 1 mg/ml syringe IV PRN (20:25)
[2021-08-23] MEDS: diatr meglu/diatrizoate 30ml oral sol.-(3 dose) bottle PO SCH (21:00)
[2021-08-24] VITALS (8 sets, daily range): BP systolic 96–119; BP diastolic 53–67
[2021-08-24] MEDS: heparin, porcine 5000 units/ml vial SQ SCH ×3 (00:41→16:20)
[2021-08-24] MEDS: ondansetron/PF 4mg/2ml inj IV SCH ×4 (02:19→19:53)
[2021-08-24] MEDS: LORazepam 2 mg/ml vial IV PRN ×4 (02:19→22:03)
--- NOTE | 2021-08-24 05:22 | NUR ---
Zosyn, 1999's and 2099's meds were non-administered. Charge Nurses Claudia and Rosa Isela attempted on starting a different IV line for the zosyn but were unsuccessful. Pt was also agitated making it also harder to start an IV. Oral meds were attempted to be initially given at 2100 but daughter suggested to give them later as pt was finally resting comfortably 30 mins after administration of Ativan and Dilaudid . Another attempt was made with Charge Nurse Claudia's permission at 2300 but pt was asleep and had difficulty waking up. Claudia was informed .
--- NOTE | 2021-08-24 06:22 | NUR ---
Problems reprioritized. Patient report given, questions answered & plan of care reviewed with Linnea LITTLE.
--- NOTE | 2021-08-24 06:46 | NUR ---
Patient in room PCU 3013. I have received report from Belgica LITTLE and had the opportunity to ask questions and assume patient care.
[2021-08-24] MEDS: diatr meglu/diatrizoate 30ml oral sol.-(3 dose) bottle PO SCH ×2 (06:50→14:23)
[2021-08-24 06:53] LABS: BASOPHILS % (AUTO) 0.1 % (0-1); EOSINOPHILS % (AUTO) 0.1 % (0-6); HEMATOCRIT 36.3 % (42.0-52.0); HEMOGLOBIN 12.2 g/dl (14.0-17.9); LYMPHOCYTES # (AUTO) 0.5 X10'3 (1.1-4.8); LYMPHOCYTES % (AUTO) 7.1 % (21-51); MEAN CORPUSCULAR HGB CONC 33.5 g/dL (33.0-36.5); MEAN CORPUSCULAR VOLUME 92.7 FL (78-98); MEAN PLATELET VOLUME 9.6 FL (7.4-10.4); MONOCYTES # (AUTO) 0.9 X10'3 (0-0.9); NEUTROPHILS # (AUTO) 5.5 X10'3 (1.8-7.7); NEUTROPHILS % (AUTO) 79.7 % (42-75); PLATELET COUNT 116 X10'3 (140-440); RED BLOOD COUNT 3.92 X10'6 (4.70-6.10); RED CELL DISTRIBUTION WIDTH 14.9 % (11.5-14.5); WHITE BLOOD COUNT 6.9 X10'3 (4.5-11.0)
[2021-08-24 07:36] LABS: ALANINE AMINOTRANSFERASE 784 U/L (12-78); ALBUMIN 3.2 G/DL (3.4-5.0); ALKALINE PHOSPHATASE 82 IU/L (46-116); ANION GAP 7 (8-16); ASPARTATE AMINO TRANSFERASE 498 U/L (10-37); BILIRUBIN,TOTAL 3.4 MG/DL (0.1-1.0); BLOOD UREA NITROGEN 116 MG/DL (7-18); BUN/CREATININE RATIO 35.4 (5.4-32.0); CHLORIDE 96 MMOL/L (99-107); CREATININE 3.28 MG/DL (0.60-1.10); GLUCOSE 118 MG/DL (70-104); MAGNESIUM 3.7 MG/DL (1.5-2.4); POTASSIUM 3.5 MMOL/L (3.5-5.1); SODIUM 133 MMOL/L (135-145); TOTAL CARBON DIOXIDE 29.9 MMOL/L (24-32); TOTAL PROTEIN 6.3 G/DL (6.4-8.2); eGFR 18 ML/MIN
[2021-08-24] MEDS: metoprolol tartrate 12.5mg (1/2 tablet) PO SCH (08:00)
[2021-08-24] MEDS: furosemide 40mg/4ml inj IV SCH ×3 (08:00→19:56)
[2021-08-24] MEDS: SODIUM ZIRCONIUM CYCLOSILICATE 10 GM POWD.PACK PO SCH ×4 (08:00→19:54)
[2021-08-24] MEDS: K and/or MAG REPLACEMENT MC SCH ×2 (08:00→20:00)
[2021-08-24] MEDS: piperacillin/tazo 3.375gm/50ml 50 ML IV SCH ×2 (08:00→22:03)
[2021-08-24] MEDS: NUT.TX.IMP.RENAL FXN,LAC-REDUC (Nepro) 237 ML VANILLA PO SCH ×3 (08:00→18:00)
[2021-08-24] MEDS: lactobacillus rhamnosus 10,000 MMU CELLS/CAPSULE PO SCH ×2 (08:54→19:54)
[2021-08-24] MEDS: ascorbic acid 500mg tablet PO SCH (08:55)
[2021-08-24] MEDS: simethicone 80mg chew tab PO SCH ×3 (08:55→19:54)
[2021-08-24] MEDS: calcium carbonate/vitamin D3 tablet PO SCH (08:55)
[2021-08-24] MEDS: multivitamins, therapeutics tablet PO SCH (08:55)
[2021-08-24] MEDS: levetiracetam 250mg tablet PO SCH ×2 (09:07→19:54)
[2021-08-24] MEDS: HYDROmorphone 1 mg/ml syringe IV PRN ×3 (10:21→19:10)
[2021-08-24] MEDS: DOBUTamine-DoBUTrex 500mg/D5W 250 ML IV SCH (13:16)
[2021-08-24] MEDS: nystatin 15 GM powder TP SCH ×2 (13:17→19:55)
--- NOTE | 2021-08-24 15:29 | NUR ---
Leigh Ellis gave me an order to DC metoprolol.
--- NOTE | 2021-08-24 17:55 | NUR ---
[place] documentation: I have reviewed and agree with all interventions, assessments performed and documented by Dominique LITTLE . [place] Medication Administration: For this medication-pass time frame, all medication were reviewed, dispensed, administered and documented per hospital policy by Dominique LITTLE.
--- NOTE | 2021-08-24 18:15 | NUR ---
Problems reprioritized. Patient report given, questions answered & plan of care reviewed with Belgica LITTLE.
--- NOTE | 2021-08-24 18:19 | NUR ---
Patient in room PCU 3013. I have received report from Linnea LITTLE and had the opportunity to ask questions and assume patient care.
[2021-08-25] MEDS: heparin, porcine 5000 units/ml vial SQ SCH ×4 (00:27→23:50)
[2021-08-25] MEDS: HYDROmorphone 1 mg/ml syringe IV PRN ×5 (00:41→22:08)
[2021-08-25 02:00] VITALS: BP 104/59
[2021-08-25] MEDS: LORazepam 2 mg/ml vial IV PRN ×5 (02:31→23:50)
[2021-08-25] MEDS: ondansetron/PF 4mg/2ml inj IV SCH ×4 (02:34→20:48)
--- NOTE | 2021-08-25 06:48 | NUR ---
Problems reprioritized. Patient report given, questions answered & plan of care reviewed with Nancy LITTLE.
[2021-08-25 07:00] VITALS: BP 105/68
--- NOTE | 2021-08-25 07:00 | NUR ---
Patient in room PCU 3013. I have received report from Boyd Lindo and had the opportunity to ask questions and assume patient care.
[2021-08-25 07:10] LABS: BASOPHILS % (AUTO) 0.3 % (0-1); EOSINOPHILS % (AUTO) 0 % (0-6); HEMATOCRIT 38.8 % (42.0-52.0); HEMOGLOBIN 12.7 g/dl (14.0-17.9); LYMPHOCYTES # (AUTO) 0.1 X10'3 (1.1-4.8); LYMPHOCYTES % (AUTO) 0.9 % (21-51); MEAN CORPUSCULAR HEMOGLOBIN 30.3 PG (27.0-31.0); MEAN CORPUSCULAR HGB CONC 32.7 g/dL (33.0-36.5); MEAN CORPUSCULAR VOLUME 92.7 FL (78-98); MEAN PLATELET VOLUME 9.9 FL (7.4-10.4); MONOCYTES # (AUTO) 0.9 X10'3 (0-0.9); MONOCYTES % (AUTO) 7.2 % (2-12); NEUTROPHILS % (AUTO) 91.6 % (42-75); PLATELET COUNT 114 X10'3 (140-440); RED BLOOD COUNT 4.19 X10'6 (4.70-6.10); RED CELL DISTRIBUTION WIDTH 14.8 % (11.5-14.5)
[2021-08-25] MEDS: simethicone 80mg chew tab PO SCH ×3 (08:00→21:55)
[2021-08-25] MEDS: ascorbic acid 500mg tablet PO SCH (08:00)
[2021-08-25] MEDS: lactobacillus rhamnosus 10,000 MMU CELLS/CAPSULE PO SCH ×2 (08:00→20:00)
[2021-08-25] MEDS: calcium carbonate/vitamin D3 tablet PO SCH (08:00)
[2021-08-25] MEDS: K and/or MAG REPLACEMENT MC SCH ×2 (08:00→20:00)
[2021-08-25] MEDS: SODIUM ZIRCONIUM CYCLOSILICATE 10 GM POWD.PACK PO SCH ×3 (08:00→21:49)
[2021-08-25] MEDS: multivitamins, therapeutics tablet PO SCH (08:00)
[2021-08-25] MEDS: levetiracetam 250mg tablet PO SCH ×2 (08:00→21:56)
[2021-08-25] MEDS: furosemide 40mg/4ml inj IV SCH ×2 (09:52→20:47)
[2021-08-25] MEDS: piperacillin/tazo 3.375gm/50ml 50 ML IV SCH ×2 (10:03→20:47)
[2021-08-25] MEDS: NUT.TX.IMP.RENAL FXN,LAC-REDUC (Nepro) 237 ML VANILLA PO SCH ×3 (10:09→18:00)
[2021-08-25] MEDS: nystatin 15 GM powder TP SCH ×3 (10:09→21:56)
--- NOTE | 2021-08-25 10:28 | NUR ---
Message sent to Dr. Mejia via spoke to clarify patient's npo. Awaiting response.
[2021-08-25 11:00] VITALS: BP 108/68
[2021-08-25] MEDS: DOBUTamine-DoBUTrex 500mg/D5W 250 ML IV SCH (16:06)
--- NOTE | 2021-08-25 17:15 | NUR ---
F/u 08/25: Pt PO continues to decline mostly 0% meals past 5 days w/ ~55% Nepro TIDWM partially meeting needs. Noted no significant BM size documented since admit 08/11 only dewayne 08/15 w/ retained stool per CT note 08/24. KANNAN d/w RN who reports no BM today. KANNAN pagewilver DO regarding routine bowel care this admit as none thus far. If truly 14 days constipation then would likely be impacting PO in addition to ALOC AOx1 per EMR. Will continue to monitor for PO trends and further nutrition intervention needs. Recs: 1. Continue Renal/1.2L fluid restricted diet per physician; consider liberalizing to regular given poor PO intake hx since 08/17. Encourage PO meals 2. Nepro TIDWM; encourage PO 3. routine bowel care 4. Weekly wts Addendum: 08/25/21 at [address] Amended: Links added.
[2021-08-25 18:00] VITALS: BP 105/71
--- NOTE | 2021-08-25 18:27 | NUR ---
No 3pm vital signs done per family's request. Dr. Posada made aware that MRCP will not be done due to recent pace maker placement, per [facility] staff.
--- NOTE | 2021-08-25 19:24 | NUR ---
Problems reprioritized. Patient report given, questions answered & plan of care reviewed with Paul.
[2021-08-25] MEDS: docusate sod 100mg capsule PO SCH (21:49)
[2021-08-25] MEDS: lactulose 20gm/30ml cup PO SCH (21:49)
[2021-08-25 22:00] VITALS: BP 113/57
[2021-08-26 02:00] VITALS: BP 103/58
[2021-08-26] MEDS: ondansetron/PF 4mg/2ml inj IV SCH ×4 (02:57→20:35)
[2021-08-26] MEDS: HYDROmorphone 1 mg/ml syringe IV PRN ×3 (02:58→18:09)
[2021-08-26] MEDS: LORazepam 2 mg/ml vial IV PRN ×5 (05:01→22:53)
[2021-08-26 06:00] VITALS: BP 121/65
[2021-08-26] MEDS: DOBUTamine-DoBUTrex 500mg/D5W 250 ML IV SCH (06:37)
[2021-08-26 07:19] LABS: BASOPHILS % (AUTO) 0.1 % (0-1); EOSINOPHILS % (AUTO) 0 % (0-6); HEMATOCRIT 36.3 % (42.0-52.0); LYMPHOCYTES # (AUTO) 0.3 X10'3 (1.1-4.8); LYMPHOCYTES % (AUTO) 3.3 % (21-51); MEAN CORPUSCULAR HEMOGLOBIN 30.6 PG (27.0-31.0); MEAN CORPUSCULAR VOLUME 92.7 FL (78-98); MEAN PLATELET VOLUME 9.9 FL (7.4-10.4); MONOCYTES % (AUTO) 11.1 % (2-12); NEUTROPHILS # (AUTO) 7.4 X10'3 (1.8-7.7); NEUTROPHILS % (AUTO) 85.5 % (42-75); PLATELET COUNT 92 X10'3 (140-440); RED BLOOD COUNT 3.92 X10'6 (4.70-6.10); RED CELL DISTRIBUTION WIDTH 15.1 % (11.5-14.5); WHITE BLOOD COUNT 8.7 X10'3 (4.5-11.0)
[2021-08-26 07:53] LABS: ALANINE AMINOTRANSFERASE 491 U/L (12-78); ALKALINE PHOSPHATASE 71 IU/L (46-116); ANION GAP 10 (8-16); ASPARTATE AMINO TRANSFERASE 197 U/L (10-37); BILIRUBIN,TOTAL 3.4 MG/DL (0.1-1.0); BLOOD UREA NITROGEN 113 MG/DL (7-18); CALCIUM 8.2 MG/DL (8.5-10.1); CHLORIDE 99 MMOL/L (99-107); CREATININE 2.97 MG/DL (0.60-1.10); GLUCOSE 131 MG/DL (70-104); POTASSIUM 3.4 MMOL/L (3.5-5.1); SODIUM 139 MMOL/L (135-145); TOTAL CARBON DIOXIDE 29.6 MMOL/L (24-32); TOTAL PROTEIN 6.1 G/DL (6.4-8.2); eGFR 20 ML/MIN
[2021-08-26] MEDS: K and/or MAG REPLACEMENT MC SCH ×2 (08:00→19:35)
[2021-08-26] MEDS: piperacillin/tazo 3.375gm/50ml 50 ML IV SCH ×2 (08:22→20:51)
[2021-08-26] MEDS: SODIUM ZIRCONIUM CYCLOSILICATE 10 GM POWD.PACK PO SCH ×4 (08:22→21:00)
[2021-08-26] MEDS: docusate sod 100mg capsule PO SCH ×3 (08:23→20:50)
[2021-08-26] MEDS: lactobacillus rhamnosus 10,000 MMU CELLS/CAPSULE PO SCH ×3 (08:23→20:37)
[2021-08-26] MEDS: simethicone 80mg chew tab PO SCH ×4 (08:23→21:00)
[2021-08-26] MEDS: levetiracetam 250mg tablet PO SCH ×3 (08:23→20:37)
[2021-08-26] MEDS: nystatin 15 GM powder TP SCH ×3 (08:23→20:38)
[2021-08-26] MEDS: lactulose 20gm/30ml cup PO SCH ×3 (08:23→20:36)
[2021-08-26] MEDS: ascorbic acid 500mg tablet PO SCH (08:24)
[2021-08-26] MEDS: multivitamins, therapeutics tablet PO SCH (08:24)
[2021-08-26] MEDS: calcium carbonate/vitamin D3 tablet PO SCH (08:24)
[2021-08-26] MEDS: furosemide 40mg/4ml inj IV SCH ×2 (08:24→20:35)
[2021-08-26] MEDS: heparin, porcine 5000 units/ml vial SQ SCH ×2 (08:24→16:38)
[2021-08-26] MEDS: HYDROcodone/acetaminophen 5mg/325mg tablet PO PRN (08:25)
[2021-08-26] MEDS: NUT.TX.IMP.RENAL FXN,LAC-REDUC (Nepro) 237 ML VANILLA PO SCH ×3 (08:26→17:26)
[2021-08-26 11:00] VITALS: BP 116/62
[2021-08-26] MEDS ORDERED: hydrOXYzine 25 MG tablet PO PRN (18:50)
--- NOTE | 2021-08-26 19:04 | NUR ---
Problems reprioritized. Patient report given, questions answered & plan of care reviewed with Eh LITTLE.
[2021-08-26 19:09] VITALS: BP 134/65
[2021-08-26] MEDS ORDERED: potassium CL 10mEq/100ml bag 100 ML IV PRN ×2 (19:25→19:35)
[2021-08-26] MEDS ORDERED: potassium Cl 20 mEq SR tablet PO PRN ×3 (19:25→19:35)
[2021-08-26] MEDS ORDERED: potassium Cl 40MEQ/1/2NS 520ml 520 ML IV PRN (19:25)
[2021-08-26] MEDS ORDERED: magnesium 4gm in 100ml NS 100 ML IV PRN ×2 (19:25→19:35)
[2021-08-26] MEDS ORDERED: magnesium 2GM in 50ml NS 50 ML IV PRN ×2 (19:25→19:35)
[2021-08-26] MEDS ORDERED: potassium Cl 40MEQ/250ML bag 250 ML IV PRN (19:25)
[2021-08-26] MEDS ORDERED: potassium Cl 20mEq/100mL bag 100 ML IV PRN ×2 (19:25→19:35)
[2021-08-26] MEDS ORDERED: magnesium Cl slow-release 64mg tablet PO PRN (19:35)
[2021-08-26 22:00] VITALS: BP 101/57
[2021-08-27] MEDS: HYDROmorphone 1 mg/ml syringe IV PRN ×4 (00:22→13:17)
[2021-08-27] MEDS: heparin, porcine 5000 units/ml vial SQ SCH ×2 (00:23→08:37)
[2021-08-27 00:24] VITALS: BP 109/66
[2021-08-27] MEDS: levetiracetam inj 1,500 MG in normal saline 100ml IV soln 100 ML IV SCH ×2 (00:24→08:38)
[2021-08-27] MEDS: DOBUTamine-DoBUTrex 500mg/D5W 250 ML IV SCH (00:24)
[2021-08-27] MEDS: ondansetron/PF 4mg/2ml inj IV SCH ×3 (01:18→13:16)
[2021-08-27] MEDS: LORazepam 2 mg/ml vial IV PRN ×2 (03:45→09:07)
[2021-08-27 07:43] LABS: BASOPHILS % (AUTO) 0 % (0-1); EOSINOPHILS % (AUTO) 0.1 % (0-6); HEMATOCRIT 35.6 % (42.0-52.0); HEMOGLOBIN 11.8 g/dl (14.0-17.9); LYMPHOCYTES # (AUTO) 0.4 X10'3 (1.1-4.8); LYMPHOCYTES % (AUTO) 4.2 % (21-51); MEAN CORPUSCULAR HEMOGLOBIN 30.8 PG (27.0-31.0); MEAN CORPUSCULAR HGB CONC 33.1 g/dL (33.0-36.5); MEAN CORPUSCULAR VOLUME 93.2 FL (78-98); MEAN PLATELET VOLUME 9.8 FL (7.4-10.4); MONOCYTES % (AUTO) 10.6 % (2-12); NEUTROPHILS # (AUTO) 7.8 X10'3 (1.8-7.7); NEUTROPHILS % (AUTO) 85.1 % (42-75); PLATELET COUNT 86 X10'3 (140-440); RED BLOOD COUNT 3.82 X10'6 (4.70-6.10); RED CELL DISTRIBUTION WIDTH 15.4 % (11.5-14.5); WHITE BLOOD COUNT 9.2 X10'3 (4.5-11.0)
[2021-08-27] MEDS: multivitamins, therapeutics tablet PO SCH (08:00)
[2021-08-27] MEDS: lactulose 20gm/30ml cup PO SCH (08:00)
[2021-08-27] MEDS: ascorbic acid 500mg tablet PO SCH (08:00)
[2021-08-27] MEDS: docusate sod 100mg capsule PO SCH (08:00)
[2021-08-27] MEDS: K and/or MAG REPLACEMENT MC SCH (08:00)
[2021-08-27] MEDS: SODIUM ZIRCONIUM CYCLOSILICATE 10 GM POWD.PACK PO SCH ×2 (08:00→12:38)
[2021-08-27] MEDS: nystatin 15 GM powder TP SCH ×2 (08:00→12:39)
[2021-08-27] MEDS: calcium carbonate/vitamin D3 tablet PO SCH (08:00)
[2021-08-27] MEDS: simethicone 80mg chew tab PO SCH ×2 (08:00→12:38)
[2021-08-27] MEDS: lactobacillus rhamnosus 10,000 MMU CELLS/CAPSULE PO SCH (08:00)
[2021-08-27] MEDS: NUT.TX.IMP.RENAL FXN,LAC-REDUC (Nepro) 237 ML VANILLA PO SCH ×2 (08:00→12:39)
[2021-08-27 08:07] LABS: ALANINE AMINOTRANSFERASE 389 U/L (12-78); ALBUMIN/GLOBULIN RATIO 0.9 (1.1-1.5); ALKALINE PHOSPHATASE 63 IU/L (46-116); ANION GAP 10 (8-16); ASPARTATE AMINO TRANSFERASE 132 U/L (10-37); BILIRUBIN,TOTAL 3.4 MG/DL (0.1-1.0); BLOOD UREA NITROGEN 105 MG/DL (7-18); BUN/CREATININE RATIO 35.2 (5.4-32.0); CALCIUM 8.5 MG/DL (8.5-10.1); CHLORIDE 102 MMOL/L (99-107); CREATININE 2.98 MG/DL (0.60-1.10); GLUCOSE 122 MG/DL (70-104); MAGNESIUM 3.5 MG/DL (1.5-2.4); POTASSIUM 3.5 MMOL/L (3.5-5.1); SODIUM 142 MMOL/L (135-145); TOTAL CARBON DIOXIDE 30.4 MMOL/L (24-32); TOTAL PROTEIN 6.5 G/DL (6.4-8.2); eGFR 20 ML/MIN
[2021-08-27] MEDS: furosemide 40mg/4ml inj IV SCH (08:37)
[2021-08-27] MEDS: piperacillin/tazo 3.375gm/50ml 50 ML IV SCH (08:39)
[2021-08-27] MEDS ORDERED: diphenhydrAMINE 50 mg/ml inj IV PRN (09:45)
== END 2021-08-27 14:26 | disposition hospice, home (50) | DRG 291 ==
LOC: ER 12:36 → ED HOLD 22:26 → PCU 3S 08-12 01:04
PROVIDERS: ADMIT Internal Medicine; ATTEND Internal Medicine
PROC: CF1C1ZZ Planar Nuclear Medicine Imaging of Hepatobiliary System, All using Technetium 99m (Tc-99m) (ICD-10-PCS; principal; 2021-08-21)
DX: I13.0 Hypertensive heart and chronic kidney disease with heart failure and stage 1 through stage 4 chronic kidney disease, or unspecified chronic kidney disease (principal); N17.0 Acute kidney failure with tubular necrosis; G93.41 Metabolic encephalopathy; I50.43 Acute on chronic combined systolic (congestive) and diastolic (congestive) heart failure; E87.1 Hypo-osmolality and hyponatremia; E87.2 Acidosis; Z66 Do not resuscitate; I42.9 Cardiomyopathy, unspecified; N18.30 Chronic kidney disease, stage 3 unspecified; N30.20 Other chronic cystitis without hematuria; E87.6 Hypokalemia; E87.5 Hyperkalemia; E78.5 Hyperlipidemia, unspecified; E83.39 Other disorders of phosphorus metabolism; E83.41 Hypermagnesemia; I25.10 Atherosclerotic heart disease of native coronary artery without angina pectoris; G40.909 Epilepsy, unspecified, not intractable, without status epilepticus; D69.6 Thrombocytopenia, unspecified; E78.00 Pure hypercholesterolemia, unspecified; I48.0 Paroxysmal atrial fibrillation; I42.0 Dilated cardiomyopathy; K57.30 Diverticulosis of large intestine without perforation or abscess without bleeding; I95.9 Hypotension, unspecified; R00.1 Bradycardia, unspecified; R10.9 Unspecified abdominal pain; D63.8 Anemia in other chronic diseases classified elsewhere; K82.8 Other specified diseases of gallbladder; K76.1 Chronic passive congestion of liver; Z86.16 Personal history of COVID-19; Z95.810 Presence of automatic (implantable) cardiac defibrillator; Z95.1 Presence of aortocoronary bypass graft; Z79.01 Long term (current) use of anticoagulants; Z79.899 Other long term (current) drug therapy; Z51.5 Encounter for palliative care
CPT/HCPCS: 36415; 71045; 74176; 76700; 76937; 78227; 80053; 80061; 80329; 81003; 82140; 82570; 82948; 83605; 83690; 83735; 83880; 84100; 84132; 84145; 84156; 84300; 84484; 85007; 85008; 85025; 85610; 86705; 86706; 86803; 87040; 87207; 93306; 93975; 97110; 97116; 97162; 97530; 99285; A9537; G0378; J0696; J0780; J1170; J1200; J1250; J1644; J1940; J1953; J2060; J2270; J2405; J2543; J3480; J3490; J7030; Q9963